=== PATIENT | female | born 1995 | race Two or more races ===

== ENCOUNTER 2025-07-22 08:42 | Emergency (ER) | payer MEDICAID, OTHER ==
[~2025-07-22] VITALS: Ht 144.8 cm; Wt 55.3 kg
[2025-07-22 08:42] VITALS: BP 109/57; TEMP 98.2; O2SAT 98
[2025-07-22] MEDS ORDERED: FAMO20TA80 PO (09:00)
[2025-07-22] MEDS ORDERED: DIPH25CA83 PO (09:00)
== END 2025-07-22 09:04 | disposition home or self-care (01) ==
LOC: ER 09:00
DX: L50.9 Urticaria, unspecified (principal)